=== PATIENT | female | born 1995 | race Hispanic/Latino ===

== ENCOUNTER 2020-08-14 23:26 | Emergency (ER) | payer OTHER ==
[2020-08-15 00:07] LABS: #Basophils 0.1 thou/uL (0.0-0.2); #Eosinphils 0.4 thou/uL (0.0-0.7); #Lymphocytes 3.1 thou/uL (1.20-3.40); #Monocytes 0.5 thou/uL (0.11-0.59); %Eosinophils 6.2 % (0.0-10.0); %Lymphocytes 44.2 % (21.0-51.0); %Monocytes 6.7 % (0.0-10.0); %Neutrophils 41.9 % (42.0-75.0); Hemoglobin 13.5 g/dL (12.0-16.0); Mean Corpuscular HGB CONC 33.9 g/dL (32.0-36.0); Mean Corpuscular Hemoglobin 29.9 pg (27.0-31.0); Mean Corpuscular Volume 88.2 fL (78.0-98.0); Mean Platelet Volume 9.8 fL (7.4-10.4); Platelet Count 196 thou/uL (130-400); RBC Distribution Width 12.2 % (11.5-14.5); Red Blood Cell (RBC) Count 4.52 mill/uL (4.20-5.40); White Blood Cell (WBC) Count 7.1 thou/uL (4.8-10.8)
[2020-08-15 00:28] LABS: ALT (SGPT) 8 U/L (8-55); AST (SGOT) 16 U/L (5-34); Albumin 3.8 g/dL (3.5-5.0); Alkaline Phosphatase 66 U/L (40-110); Anion Gap 14 mmol/L (10-20); BUN (Urea Nitrogen) 9 mg/dL (7.0-18.7); Bilirubin, Total 0.2 mg/dL (0.2-1.2); Calc. Creatinine Clearance 0 mL/min (70-130); Calcium 8.9 mg/dL (7.8-10.44); Carbon Dioxide 22 mmol/L (22-29); Chloride 104 mmol/L (98-107); Globulin 3.5 g/dL (2.4-3.5); Glucose 89 mg/dL (70-105); Potassium 3.8 mmol/L (3.5-5.1); Protein, Total 7.3 g/dL (6.0-8.3); Sodium 136 mmol/L (136-145)
[2020-08-15 01:42] LABS: Bilirubin Negative (Negative); Blood, Urine Negative (Negative); Clarity Clear (Clear); Glucose, Urine (Dipstick) Normal (Negative); Ketone, Urine Negative (Negative); Leukocyte Negative Leu/uL (Negative); Nitrite Negative (Negative); Protein, Urine (Dipstick) Negative (Neg-Trace); Specific Gravity, Urine 1.026 (1.002-1.036); Urobilinogen Normal mg/dL (Less than 2); pH, Urine 5.5 (5.0-9.0)
--- NOTE | 2020-08-15 08:22 | ULT ---
PRELIMINARY REPORT/DIRECT RADIOLOGY/EMERGENCY AFTER HOURS PROCEDURE: This report was discussed with Erica Guillermo RN by Kath Echavarria on Aug 15, 2020 01:02:00 SIGN HANGER. Addendum electronically signed by Kath Echavarria on August 15, 2020 1:02:48 AM SIGN HANGER History: HX: VAG BLEEDING X 2 DAYS. SEE NOTES ON LAST IMAGE. THANKS Comparison: No relevant comparisons available OB Ultrasound 1st trimester performed utilizing grayscale and color Doppler technique Findings: Gestational sac: Present. pole: Present . CRL: 72 mm . FHR: 160 bpm. LMP: 05/14/2020 . EGA dates: 13 week 1 day. EGA US: 13 week 3 day. Other: 1. Placenta is anterior. At the inferior tip of the placenta, there is a hypoechoic complex region demonstrated measuring 37 x 20 x 17 mm. This does appear interpose between the Uterine wall and placenta. IMPRESSION: Single viable intrauterine Suspected retroplacental hematoma at the inferior ti p of the placenta. ELECTRONICALLY SIGNED BY: Moustapha Montgomery MD Aug 15, 2020 12:55:04 AM SIGN HANGER FINAL REPORT PELVIC ULTRASOUND TRANSABDOMINAL: EMERGENCY AFTER HOURS EXAM TIME: 12:07 AM. DATE: 08/15/2020. Single early viable intrauterine . Evidence for retroplacental hemorrhage at the inferior tip of the placenta. This report is in agreement with the preliminary report. Transcribed Date/Time: 08/15/2020 8:38 AM
== END 2020-08-15 01:34 | disposition home or self-care (01) ==
LOC: ERS 23:26
DX: O20.0 Threatened abortion (principal); Z3A.13 13 weeks gestation of pregnancy
CPT/HCPCS: 36415; 76856; 80053; 81003; 84702; 85025; 86900; 86901